=== PATIENT | male | born 1980 | race Caucasian/White ===

== ENCOUNTER 2017-03-11 10:25 | Emergency (ER) | payer SELFPAY ==
--- NOTE | 2017-03-11 11:10 | UC ---
Upper Extremity HPI - HPI Summary HPI Summary: 36 y/o male present to the urgent care c/o RT wrist pain for the past month. 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 He has noticed this movement exacerbates his pain. Now he feels numbness and tingling over the tips of the middle and ring finger since last week after 40' gutter twisted while he was holding it. Pain is 5/10 which gets better at rest. Sometimes it radiates to his julee. Pt denies fever, SOB, chest pain , N/V/D - History of Current Complaint Chief Complaint: UCUpperExtremity Stated Complaint: RIGHT WRIST INJURY WC Time Seen by Provider: 03/11/17 10:51 Hx Obtained From: Patient Onset/Duration: Gradual Onset, Lasting Weeks, Still Present Severity Initially: Mild Severity Currently: Moderate Pain Intensity: 5 Pain Scale Used: 0-10 Numeric Location Of Pain: Is Discrete @ - RT wrist Character: Throbbing Aggravating Factor(s): Movement, Lifting, Flexion Alleviating Factor(s): Rest Associated Signs And Symptoms: Positive: Numbness/Tingling. Negative: Swelling , Redness, Bruising, Fever - Risk Factors Non-Orthopedic Risk Factor: Negative DVT Risk Factors: Negative Septic Arthritis Risk Factor: Negative - Allergies/Home Medications Allergies/Adverse Reactions: Allergies Allergy/AdvReac Type Severity Reaction Status Date / Time No Known Allergies Allergy Verified 03/11/17 10:45 Home Medications: Home Medications B-Complex W/Biotin & Folic Aci [Super B-Complex] 1 tab PO QAM 03/11/17 [History Confirmed 03/11/17] PMH/Surg Hx/FS Hx/Imm Hx Previously Healthy: Yes - Surgical History Surgical History: None - Family History Known Family History: Positive: None Negative: Diabetes - Social History Occupation: Employed Full-time Lives: With Family Alcohol Use: Rare Substance Use Type: None Smoking Status (MU): Heavy Every Day Tobacco Smoker Type: Cigarettes Amount Used/How Often: 1 PPD Length of Time of Smoking/Using Tobacco: Since Age 15 Review of Systems Constitutional: Negative Skin: Negative Eyes: Negative ENT: Negative Respiratory: Negative Cardiovascular: Negative Gastrointestinal: Negative Genitourinary: Negative Motor: Negative Neurovascular: Negative Musculoskeletal: Other: - RT wirst pain with numbness and tingling Neurological: Negative Psychological: Negative All Other Systems Reviewed And Are Negative: Yes Physical Exam Triage Information Reviewed: Yes Appearance: Well-Appearing, No Pain Distress, Well-Nourished, Obese Vital Signs: Initial Vital Signs Temp 98.7 F 03/11/17 10:40 Pulse 86 03/11/17 10:40 Resp 16 03/11/17 10:40 BP 133/93 03/11/17 10:40 Pulse Ox 100 03/11/17 10:40 Vital Signs Reviewed: Yes Eye Exam: Normal Eyes: Positive: Conjunctiva Clear - PERRLA, EOMI ENT Exam: Normal ENT: Positive: Normal ENT inspection, Hearing grossly normal, Pharynx normal, TMs normal Dental Exam: Normal Neck exam: Normal Neck: Positive: Supple, Nontender, No Lymphadenopathy Respiratory Exam: Normal Respiratory: Positive: Chest non-tender, Lungs clear, Normal breath sounds Cardiovascular Exam: Normal Cardiovascular: Positive: RRR, No Murmur, Pulses Normal, Brisk Capillary Refill Abdominal Exam: Normal Abdomen Description: Positive: Nontender, No Organomegaly, Soft. Negative: CVA Tenderness (R), CVA Tenderness (L) Bowel Sounds: Positive: Present Musculoskeletal Exam: Normal Musculoskeletal: Positive: Strength Intact, Other: - RT hand with tenderness over the palmar aspect on hyperextension. Tenderness elicited upon tappint the wrist. Phalen test and tinel test: positive. Filkensteins test: negative. No swelling or atrophy of thenar eminence observed. Limited ROM due to pain. Sensation, capillary refill WNL. pulses and reflexes WNL. Neurological Exam: Normal Psychological Exam: Normal Skin Exam: Normal Upper Extremity Course/Dx - Course Course Of Treatment: 36 y/o male present to the urgent care c/o RT wrist pain for the past month. 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 He has noticed this movement exacerbates his pain. Now he feels numbness and tingling over the tips of the middle and ring finger since last week after 40' gutter twisted while he was holding it. Pain is 5/10 which gets better at rest. Sometimes it radiates to his julee. Pt denies fever, SOB, chest pain , N/V/D. HX obtained, PE performed and meds reviewed. Most likley Carpel Tunel syndrome. Pt" hand immobilized with a cock-up splint and Rx Celebrex PO and advised to immerse hand in ice water, keep hand immobilized and avoid repetitive movements to alleviate symptoms. If not resolution of symptoms to f/u with his PCP for further treatment. Pt understood and agreed - Differential Dx/Diagnosis Differential Diagnosis/HQI/PQRI: Arthritis, Contusion, Fracture (Closed), Strain , Sprain, Other - tendonitis, carpel tunnel syndrome, DdeQuervain's tenosynovitis Provider Diagnoses: 1-RT writs pain w/ Carpel tunnel syndrome Discharge - Discharge Plan Condition: Stable Disposition: HOME Prescriptions: celeCOXIB CAP* [CeleBREX CAP*] 100 mg PO BID #20 cap Referrals: Non Staff,Doctor [Medical Doctor] - [facility] [Outside] Additional Instructions: 1- Please take medication as directed after meals to alleviate pain swelling. 2- Keep your wrist immobilized at all times and apply ice 3- If symptoms do not improve after 2 weeks please f/u with your PCP for further treatment What is carpal tunnel syndrome? Carpal tunnel syndrome is a condition that causes pain and numbness in the fingers and hands, and sometimes the arms. It happens when a nerve in the wrist called the "median nerve" gets pinched or squeezed. The median nerve goes through a tunnel in the wrist that is formed by the bones of the wrist and a tough band of tissue called a "ligament" (figure 1). Experts do not know exactly how the nerve can get pinched, but they think it might happen when: ?Tendons that go through the same tunnel get swollen (tendons are bands of tissue that connect muscles to bones) ?Tissues surrounding the tendons harden ?People hold their hands in a position that makes the tunnel smaller The median nerve carries signals about sensation it tells the brain what the hand is "feeling." It gets input from these parts of the hand: ?Thumb ?Index finger ?Middle finger ?Parts of the ring finger ?Parts of the palm closest to the thumb Woman are more likely than men to get carpal tunnel syndrome. Being overweight probably increases the risk of carpal tunnel syndrome. Examples of other conditions that might increase the risk include , diabetes, and rheumatoid arthritis. What are the symptoms of carpal tunnel syndrome? The symptoms include pain and tingling in the thumb and the index, middle, and ring fingers (figure 1). Often the symptoms affect both hands, but one hand might have worse symptoms than the other. In some cases, pain and tingling can extend to the whole hand or even up to the wrist and forearm. Rarely, pain and tingling extends past the elbow to the shoulder. Symptoms are usually worst at night and can even wake you up from sleep. The symptoms can also flare up when you do things that involve bending and unbending your wrist or raising your arms. Some activities can trigger symptoms in people with carpal tunnel syndrome. But they do not actually cause the condition. Examples include: ?Sleeping ?Driving ?Reading ?Typing ?Holding a phone In many people, the symptoms come and go. But some people eventually have symptoms all the time. They can end up having trouble moving their fingers or controlling their immunologist.
[2017-03-11 11:18] VITALS: BP 133/93
== END 2017-03-11 11:27 | disposition home or self-care (01) ==
LOC: UCCORT 10:25
DX: M25.531 Pain in right wrist (principal); F17.200 Nicotine dependence, unspecified, uncomplicated
CPT/HCPCS: 99213; G0463